=== PATIENT | female | born 1960 | race Caucasian/White ===

== ENCOUNTER 2024-06-13 17:46 | Emergency (ER) | payer BC ==
[~2024-06-13] VITALS: Ht 172.7 cm; Wt 79.4 kg
[2024-06-13] MEDS ORDERED: PROZAC10 MG PO (17:58)
[2024-06-13] MEDS ORDERED: ALLOPURINOL100 MG PO (17:58)
[2024-06-13] MEDS ORDERED: KETOROLAC TROME10 MG PO (19:12)
[2024-06-13] MEDS ORDERED: OXYCODONE/ACETAMINOPHEN 1 TAB HOME.PACK PO ONE (19:15)
[2024-06-13 19:32] VITALS: BP 123/76
== END 2024-06-13 19:32 | disposition home or self-care (01) ==
LOC: ED 17:46
DX: S92.425A Nondisplaced fracture of distal phalanx of left great toe, initial encounter for closed fracture (principal); W20.8XXA Other cause of strike by thrown, projected or falling object, initial encounter; Z79.899 Other long term (current) drug therapy
CPT/HCPCS: 73630; 99283